=== PATIENT | female | born 1965 | race Caucasian/White ===

== ENCOUNTER 2020-09-02 07:18 | Outpatient (REF) | payer OTHER, SELFPAY ==
[2020-09-02 11:44] LABS: Glucose Urine UA NEG (NEG); Leukocyte Esterase Urine TRACE (NEG); Nitrite Urine NEG (NEG); PH 6.5 (5.0-8.0); Urine Blood 1+ (NEG); Urine Ketones NEG (NEG); Urine Protein NEG (NEG-TRACE)
[2020-09-02 11:45] LABS: Hemoglobin 11.9 g/dl (12.0-16.0); Mean Corpuscular HGB Conc 31.3 g/dl (31.0-35.0); Mean Corpuscular Volume 83.2 fL (80-98); Mean Platelet Volume 11.4 fL (9.4-12.3); Platelet Count 230 X10*3/uL (160-400); Red Blood Count 4.57 X10*6/uL (4.20-5.50); Red Cell Distribution Width 15.3 % (11.0-16.0); White Blood Count 7.5 X10*3/uL (4.8-10.8)
[2020-09-02 11:50] LABS: Appearance Urine HAZY; Color Urine YELLOW
[2020-09-02 12:10] LABS: Alanine Aminotransferase 15 U/L (0-31); Albumin Level 4.2 g/dL (3.5-5.0); Alkaline Phosphatase 107 U/L (39-117); Anion Gap 12 (12-20); Aspartate Amino Transferase 19 U/L (5-31); Bilirubin Total 0.5 mg/dL (0.0-1.0); Blood Urea Nitrogen 13 mg/dL (9-16); Carbon Dioxide 26 mmol/L (22-29); Chloride 105 mmol/L (96-108); Cholesterol 185 mg/dL; Estimated Glomerular Filt Rate > 60; Glucose Fasting 86 mg/dL (60-99); HDL Cholesterol 62 mg/dL; LDL Cholesterol Calculated 113 mg/dl; Potassium 4.1 mmol/l (3.3-5.1); Sodium 139 mmol/L (135-145); Total Protein 7.1 g/dL (6.5-8.0); Triglycerides 51 mg/dL
[2020-09-02 12:11] LABS: Bacteria Urine TRACE /LPF; Mucus Urine 1+ /LPF; Squamous Epithelial Cell Urine 2+ /LPF
[2020-09-02 12:14] LABS: Thyroid Stimulating Hormone 0.02 uIU/mL (0.32-4.0); Vitamin D 25-OH Total 47.4 ng/mL (>30)
== END 2020-09-02 07:19 | disposition home or self-care (01) ==
LOC: HO.HMGCLDS 07:18
PROVIDERS: PCP Internal Medicine; Visit Provider Internal Medicine
DX: E03.9 Hypothyroidism, unspecified (principal); E55.9 Vitamin D deficiency, unspecified; Z00.00 Encounter for general adult medical examination without abnormal findings; E78.2 Mixed hyperlipidemia
CPT/HCPCS: 36415; 80053; 80061; 81001; 82306; 84443; 85027

== ENCOUNTER 2021-03-29 08:33 | Outpatient (REF) | payer OTHER, SELFPAY ==
[2021-03-29 11:37] LABS: Glucose Urine UA NEG (NEG); Leukocyte Esterase Urine NEG (NEG); Nitrite Urine NEG (NEG); Specific Gravity - Urine 1.015 (1.005-1.025); Urine Blood 1+ (NEG); Urine Ketones NEG (NEG); Urine Protein NEG (NEG-TRACE)
[2021-03-29 11:44] LABS: Appearance Urine CLEAR; Color Urine YELLOW
[2021-03-29 12:08] LABS: TSH reflex Free T4 0.04 uIU/mL (0.32-4.0)
[2021-03-29 12:25] LABS: Bacteria Urine TRACE /LPF; RBC Urine 0-2 /HPF (0); Squamous Epithelial Cell Urine 1+ /LPF; WBC Urine 0-2 /HPF (0-4)
[2021-03-29 12:50] LABS: Free T4 (Free Thyroxine) 1.38 ng/dL (0.71-1.85)
== END 2021-03-29 08:34 | disposition home or self-care (01) ==
LOC: HO.HMGCLDS 08:33
PROVIDERS: PCP Internal Medicine; Visit Provider Internal Medicine
DX: E03.9 Hypothyroidism, unspecified (principal)
CPT/HCPCS: 36415; 81001; 84439; 84443

== ENCOUNTER 2021-06-14 07:22 | Outpatient (REF) | payer OTHER, SELFPAY ==
--- NOTE | ~2021-06-14 | XR_ITS ---
EXAMINATION: XR KNEE, LEFT CLINICAL INFORMATION: Pain left knee COMPARISON: None TECHNIQUE: Four views of the left knee. FINDINGS: There is no fracture, dislocation, destructive process, or suprapatellar effusion. There is no joint narrowing or erosive change or visible chondrocalcinosis. Hoffa's fat pad is unremarkable. XR/XR knee LT 4V IMPRESSION: Normal left knee.
[2021-06-14 11:21] LABS: Appearance Urine HAZY; Color Urine YELLOW; Glucose Urine UA NEG (NEG); Leukocyte Esterase Urine 1+ (NEG); Nitrite Urine NEG (NEG); Specific Gravity - Urine 1.025 (1.005-1.025); UACC Culture Trigger YES; Urine Blood 2+ (NEG); Urine Ketones NEG (NEG); Urine Protein NEG (NEG-TRACE)
[2021-06-14 11:25] LABS: MANUAL DIFF FLAG NO
[2021-06-14 11:33] LABS: Basophils Percent Auto 0.6 % (0-2); Eosinophils Absolute Auto 0.3 X10*3/uL (0.0-0.4); Eosinophils Percent Auto 4.6 % (0-4); Hematocrit 37.9 % (37-47); Imm Gran Abs Auto 0.02 X10*3/uL (0.00-0.03); Imm Gran Pct Auto 0.3 % (0.0-0.4); Lymphocytes Absolute Auto 2.3 X10*3/uL (1.2-4.9); Lymphocytes Percent Auto 33.6 % (20-40); Mean Corpuscular HGB Conc 31.7 g/dl (31.0-35.0); Mean Corpuscular Hemoglobin 26.8 pg (27.0-33.0); Mean Corpuscular Volume 84.6 fL (80-98); Mean Platelet Volume 11.5 fL (9.4-12.3); Monocytes Absolute Auto 0.7 X10*3/uL (0.1-1.2); Monocytes Percent Auto 10.3 % (2-11); Neutrophils Absolute Auto 3.4 X10*3/uL (2.0-8.3); Neutrophils Percent Auto 50.6 % (45-73); Platelet Count 219 X10*3/uL (160-400); Red Blood Count 4.48 X10*6/uL (4.20-5.50); Red Cell Distribution Width 14.9 % (11.0-16.0); White Blood Count 6.7 X10*3/uL (4.8-10.8)
[2021-06-14 11:45] LABS: Bacteria Urine 1+ /LPF; Squamous Epithelial Cell Urine 4+ /LPF
[2021-06-14 11:46] LABS: Alanine Aminotransferase 15 U/L (0-31); Albumin Level 4.1 g/dL (3.5-5.0); Alkaline Phosphatase 117 U/L (39-117); Anion Gap 13 (12-20); Aspartate Amino Transferase 19 U/L (5-31); Blood Urea Nitrogen 18 mg/dL (9-16); Calcium 9.4 mg/dL (8.4-10.2); Carbon Dioxide 21 mmol/L (22-29); Chloride 110 mmol/L (96-108); Cholesterol 206 mg/dL; Estimated Glomerular Filt Rate > 60; Glucose Fasting 111 mg/dL (60-99); HDL Cholesterol 65 mg/dL; LDL Cholesterol Calculated 127 mg/dl; Potassium 3.9 mmol/L (3.3-5.1); Sodium 140 mmol/L (135-145); Triglycerides 71 mg/dL
[2021-06-14 12:12] LABS: Bilirubin Total 0.2 mg/dL (0.0-1.0)
[2021-06-14 12:14] LABS: TSH reflex Free T4 0.01 uIU/mL (0.32-4.0)
[2021-06-14 12:57] LABS: Free T4 (Free Thyroxine) 1.39 ng/dL (0.71-1.85)
== END 2021-06-14 07:23 | disposition home or self-care (01) ==
LOC: HO.HMGCX 07:22
PROVIDERS: PCP Internal Medicine; Visit Provider Internal Medicine
DX: Z00.00 Encounter for general adult medical examination without abnormal findings (principal); M25.562 Pain in left knee; E03.9 Hypothyroidism, unspecified
CPT/HCPCS: 36415; 73564; 80053; 80061; 81001; 84439; 84443; 85025; 87086

== ENCOUNTER 2021-07-07 16:34 | Outpatient (RCR) | payer OTHER, SELFPAY ==
[2021-07-07 16:50] VITALS: BP 118/73; PULSE 73; O2SAT 97
--- NOTE | 2021-07-07 17:42 | MHC.PT.EP ---
[facility] [place] Office [place] Office [place] Office [address] Lew Quiñones [address] [phone] F: [phone] F: [phone] F: [phone] F: [phone] Physical Therapy Plan of Care Date of Evaluation: Date of Surgery: Diagnosis: This is a 56 yo female presenting to skilled PT with a script for dizziness and giddiness Assessment: This is a 56 yo female presenting to skilled PT with a script for dizziness and giddiness. Patient comes to PT with improvements in symptoms. Symptoms were last present 3 weeks ago. The patient does report a history of vertigo and has had symptoms that lasted about 10 days once a year for the past 3 years. When symptoms were present she reported that the room was spinning, she was unsteady and had LOB, vomited and was nauseous. Symptoms were increased with getting out of bed, rolling in bed. Examination shows normal oculomotor tests, (-) VBI, WFL cervical AROM. She was (-) for BPPV with kateryna-hallpike and roll test assessments. She had normal scores and no symptoms with DGI or ezio SOPT. She understands the anatomy, symptoms and symptom management at this time. Patient would benefit from 2x/wk for 4wks to address impairments, implement HEP and optimize functional mobility if symptoms return. Will keep chart open for 30 days. Frequency and Duration: The patient will be seen 2x/wk for 5wks Short Term Goals: Reassess if needed Paintings Restorer Goals: I in HEP Demo normal scores on balance tests without LOB noted or reported in community Demo no nystagmus or symptoms in testing positions Treatment Plan: Modalities to reduce pain, spasms and effusion. Manual therapy to restore motion and function. Therapeutic exercise to improve strength and flexibility. Neuromuscular re-education for posture and balance. Therapeutic activities to return to functional activities of daily living. Electronically signed by: Shanta Fields PT Please sign and return to therapist. Thank you for your referral.
--- NOTE | 2021-08-04 13:58 | MHC.PT.DC ---
[facility] [place] Office [place] Office [place] Office [address] Lew Quiñones [address] [phone] F: [phone] F: [phone] F: [phone] F: [phone] Physical Therapy Discharge Report Diagnosis: This is a 56 yo female presenting to skilled PT with a script for dizziness and giddiness Date of Surgery: Date of Evaluation: 07/07/21 Date of Discharge: 08/04/21 Treatments to Date: 1 Cancellations to Date: 0 No Shows to Date: 0 Discharge Status: Achieved Goals Improved Function Independent with HEP Discharge Summary: This is a 56 yo female presenting to skilled PT with a script for dizziness and giddiness. Patient comes to PT with improvements in symptoms. Symptoms were last present 3 weeks ago. The patient does report a history of vertigo and has had symptoms that lasted about 10 days once a year for the past 3 years. When symptoms were present she reported that the room was spinning, she was unsteady and had LOB, vomited and was nauseous. Symptoms were increased with getting out of bed, rolling in bed. Examination shows normal oculomotor tests, (-) VBI, WFL cervical AROM. She was (-) for BPPV with kateryna-hallpike and roll test assessments. She had normal scores and no symptoms with DGI or ezio SOPT. She understands the anatomy, symptoms and symptom management at this time. Patient would benefit from 2x/wk for 4wks to address impairments, implement HEP and optimize functional mobility if symptoms return. Kept chart open for 30 days prior to DC. DC at this time Electronically signed by: Shanta Fields, PT Please sign and return to therapist. Thank you for your referral.
== END 2021-08-04 13:58 | disposition home or self-care (01) ==
LOC: HO.PTCHIC 16:34
PROVIDERS: PCP Internal Medicine; Visit Provider Internal Medicine
DX: R42 Dizziness and giddiness (principal)
CPT/HCPCS: 97110; 97161

== ENCOUNTER 2021-07-14 08:29 | Outpatient (REF) | payer OTHER, SELFPAY ==
[2021-07-14 11:34] LABS: Appearance Urine CLEAR; Color Urine YELLOW; Glucose Urine UA NEG (NEG); Leukocyte Esterase Urine 1+ (NEG); Nitrite Urine NEG (NEG); UACC Culture Trigger YES; Urine Blood 1+ (NEG); Urine Ketones NEG (NEG); Urine Protein NEG (NEG-TRACE)
[2021-07-14 12:18] LABS: Squamous Epithelial Cell Urine 1+ /LPF
[2021-07-14 12:19] LABS: Renal Epithelial Cells Urine TRACE /LPF
== END 2021-07-14 08:30 | disposition home or self-care (01) ==
LOC: HO.HMGCLDS 08:29
PROVIDERS: PCP Internal Medicine; Visit Provider Internal Medicine
DX: Z00.00 Encounter for general adult medical examination without abnormal findings (principal); R30.0 Dysuria
CPT/HCPCS: 81001; 87086

== ENCOUNTER 2021-09-03 09:58 | Outpatient (REF) | payer OTHER, SELFPAY ==
[2021-09-04 11:19] LABS: BV Int Neg Control Negative (Negative); BV Int Pos Control Positive (Positive)
[2021-09-04 14:52] LABS: CT PCR NOT DETECTED (Not Detect.); NG PCR NOT DETECTED (Not Detect.)
[2021-09-08 13:47] LABS: HPV mRNA E6/E7 rflx Not Detected (Not Detected)
== END 2021-09-03 09:59 | disposition home or self-care (01) ==
LOC: HO.LAB 09:58
PROVIDERS: PCP Internal Medicine; Visit Provider Advanced Practice Midwife
DX: Z01.419 Encounter for gynecological examination (general) (routine) without abnormal findings (principal); N95.0 Postmenopausal bleeding; Z11.3 Encounter for screening for infections with a predominantly sexual mode of transmission
CPT/HCPCS: 87480; 87491; 87510; 87591; 87624; 87660; 88142

== ENCOUNTER 2021-09-22 10:27 | Outpatient (REF) | payer OTHER, SELFPAY ==
--- NOTE | ~2021-09-22 | US_ITS ---
EXAMINATION: US PELVIS CLINICAL INFORMATION: Postmenopausal bleeding COMPARISON: None TECHNIQUE: Ultrasound of the pelvis is performed using both transabdominal and transvaginal transducers along with Doppler. Transvaginal imaging is performed due to inadequate visualization transabdominally. FINDINGS: The uterus is anteverted and measures 7.2 x 3.5 x 4.5 cm in dimension. No focal uterine lesion is seen. Endometrial thickness is normal measuring 0.3 cm. The cervix is normal appearing. The ovaries are seen transabdominally only and are normal-appearing. The right ovary measures 1.8 x 0.8 x 1.7 cm and the left ovary measures 1.5 x 0.8 x 1.6 cm. There is no fluid in the pelvis. US/US pelvic and transvaginal IMPRESSION: Normal pelvic ultrasound.
== END 2021-09-22 10:28 | disposition home or self-care (01) ==
LOC: HO.HMGCX 10:27
PROVIDERS: PCP Internal Medicine; Visit Provider Advanced Practice Midwife
DX: N95.0 Postmenopausal bleeding (principal); K76.89 Other specified diseases of liver
CPT/HCPCS: 76830; 76856

== ENCOUNTER 2021-10-04 08:25 | Outpatient (REF) | payer OTHER, SELFPAY ==
--- NOTE | ~2021-10-04 | US_ITS ---
EXAMINATION: US ABDOMEN COMPLETE CLINICAL INFORMATION: Other specified diseases of liver. COMPARISON: Ultrasound abdomen complete 12/31/2019. TECHNIQUE: Real-time imaging of the abdominal viscera. FINDINGS: PANCREAS: Normal. ABDOMINAL AORTA: The proximal, mid, and distal segments are normal in caliber. INFERIOR VENA CAVA: Visualized portions are normal. LIVER: The liver is normal in size. The liver contour is normal. There is anechoic cyst left lobe measuring 1.9 x 1.0 x 1.8 cm and anechoic cyst in right lobe measuring 1.5 x 1.2 x 1.5 cm. There is no intrahepatic biliary duct dilatation seen. GALLBLADDER: Gallbladder wall thickness is 0.25 cm. The gallbladder is physiologically distended without evidence of stones, sludge, polyps, wall thickening or pericholecystic fluid. COMMON BILE DUCT: Normal in caliber measuring 0.35 cm in diameter. RIGHT KIDNEY: The right kidney appears horseshoe-shaped. No hydronephrosis. No renal calculi or focal parenchymal lesions. The kidney measures 10.0 cm in maximum dimension. LEFT KIDNEY: The left kidney appears horseshoe shaped and likely fused to the right side No hydronephrosis. No renal calculi or focal parenchymal lesions. The kidney measures 10.9 cm in maximum dimension. SPLEEN: Normal. The spleen measures 9.6 cm in maximum dimension. FREE FLUID: None. US/US abdomen complete IMPRESSION: Hepatic small cyst. No solid mass or intrahepatic duct dilatation. 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 This was not visualized on the previous ultrasound 12/31/2019. The rest of the abdominal ultrasound is unremarkable.
== END 2021-10-04 08:26 | disposition home or self-care (01) ==
LOC: HO.HMGCX 08:25
PROVIDERS: PCP Internal Medicine; Visit Provider Internal Medicine
DX: K76.89 Other specified diseases of liver (principal)
CPT/HCPCS: 76700

== ENCOUNTER → 2021-10-08 13:58 | Outpatient (BNVA) | payer OTHER, SELFPAY | PROVIDERS: PCP Internal Medicine; Visit Provider Advanced Practice Midwife | DX: N95.0 Postmenopausal bleeding (principal); Z71.2 Person consulting for explanation of examination or test findings | CPT/HCPCS: 99212 ==

== ENCOUNTER 2021-11-13 09:32 | Outpatient (REF) | payer OTHER, SELFPAY ==
[2021-11-13 11:37] LABS: Estimated Average Glucose 108 mg/dL; Hemoglobin A1C 118.8808 umol/L; Hemoglobin A1c % 5.4 %
[2021-11-13 11:48] LABS: TSH reflex Free T4 0.05 uIU/mL (0.32-4.0)
[2021-11-13 11:51] LABS: Alanine Aminotransferase 13 U/L (0-31); Albumin Level 4.2 g/dL (3.5-5.0); Alkaline Phosphatase 106 U/L (39-117); Anion Gap 9 (12-20); Aspartate Amino Transferase 20 U/L (5-31); Bilirubin Total 0.5 mg/dL (0.0-1.0); Blood Urea Nitrogen 14 mg/dL (9-16); Calcium 9.6 mg/dL (8.4-10.2); Carbon Dioxide 28 mmol/L (22-29); Chloride 105 mmol/L (96-108); Estimated Glomerular Filt Rate > 60; Glucose Fasting 105 mg/dL (60-99); Sodium 138 mmol/L (135-145); Total Protein 7.4 g/dL (6.5-8.0)
[2021-11-13 12:27] LABS: Free T4 (Free Thyroxine) 1.18 ng/dL (0.71-1.85)
== END 2021-11-13 09:33 | disposition home or self-care (01) ==
LOC: HO.HMGCLDS 09:32
PROVIDERS: Visit Provider Internal Medicine
DX: Z00.00 Encounter for general adult medical examination without abnormal findings (principal); E03.9 Hypothyroidism, unspecified; N95.0 Postmenopausal bleeding
CPT/HCPCS: 36415; 80053; 83036; 84439; 84443

== ENCOUNTER 2022-02-23 08:00 | Outpatient (RCR) | payer OTHER, SELFPAY ==
[2022-02-18 09:56] VITALS: BP 108/70; PULSE 71; O2SAT 96
--- NOTE | 2022-02-18 11:01 | MHC.PT.EP ---
[facility] [place] Office [place] Office [place] Office [address] Lew Quiñones [address] [phone] F: [phone] F: [phone] F: [phone] F: [phone] Physical Therapy Plan of Care Date of Evaluation: Date of Surgery: Diagnosis: dizziness and giddiness Assessment: 57 y/o F referred to PT with dizziness and giddiness. She has a hx of BPPV and most recent recurrence began yesterday after rolling in bed. She became nauseous and vomiting. Room-spinning dizziness last < 5 minutes. Sx are worsened with rolling in bed and moving too quickly. Examination shows normal saccades/ smooth pursuit, (-) B VBI, normal static balance, and (+) for R and L posterior canal BPPV. She had sx and nystamgus in B Dix_Hallpike positions, however she had a few horizontal bears in R Hallpike position but Roll Test was (-). Upon re-testing, she was negative after treatment with Lyndsay. Recommend PT 2x/week for 4 weeks to address impairments and optimize functional mobility. Frequency and Duration: The patient will be seen 2x/week for 4 weeks Short Term Goals: Equipment Coordinator Goals: 1. Pt will be (-) for nystagmus and reports of vertigo in all diagnostic directions with resolution of BPPV in 4 weeks 2. Pt to be able to functionally move in all planes without provocation of dizziness and return to PLOF in 4 weeks 3. Pt to be educated on sx and indications to return to therapy when needed in 4. Eliminate BPPV in order to reduce risk of falls Treatment Plan: Modalities to reduce pain, spasms and effusion. Manual therapy to restore motion and function. Therapeutic exercise to improve strength and flexibility. Neuromuscular re-education for posture and balance. Therapeutic activities to return to functional activities of daily living. Electronically signed by: Zara Castro PT Please sign and return to therapist. Thank you for your referral.
--- NOTE | 2022-04-08 07:55 | MHC.PT.DC ---
[facility] [place] Office [place] Office [place] Office [address] Lew Quiñones [address] [phone] F: [phone] F: [phone] F: [phone] F: [phone] Physical Therapy Discharge Report Diagnosis: dizziness and giddiness Date of Surgery: Date of Evaluation: 02/18/22 Date of Discharge: 04/08/22 Treatments to Date: 2 Cancellations to Date: 0 No Shows to Date: 0 Discharge Status: Achieved Goals Improved Function Discharge Summary: Lillie comes in feeling better. She was reassessed for all canals in which she was negative for nystagmus and symptoms. She was educated on causes of vertigo, symptoms and calling office if symptoms return. D/c at this time. Electronically signed by: Zara Castro PT Please sign and return to therapist. Thank you for your referral.
== END 2022-04-08 07:56 | disposition home or self-care (01) ==
LOC: HO.PTCHIC 08:00
PROVIDERS: PCP Internal Medicine; Visit Provider Internal Medicine
DX: R42 Dizziness and giddiness (principal)
CPT/HCPCS: 95992; 97161

== ENCOUNTER 2022-08-01 13:29 | Outpatient (REF) | payer OTHER, SELFPAY ==
[2022-08-01 16:27] LABS: MANUAL DIFF FLAG NO
[2022-08-01 16:34] LABS: Basophils Percent Auto 0.4 % (0-2); Eosinophils Absolute Auto 0.2 X10*3/uL (0.0-0.4); Eosinophils Percent Auto 2.3 % (0-4); Hematocrit 37.1 % (37.0-47.0); Hemoglobin 12.1 g/dl (12.0-16.0); Imm Gran Abs Auto 0.01 X10*3/uL (0.00-0.03); Imm Gran Pct Auto 0.1 % (0.0-0.4); Lymphocytes Absolute Auto 2.2 X10*3/uL (1.2-4.9); Mean Corpuscular HGB Conc 32.6 g/dl (31.0-35.0); Mean Corpuscular Hemoglobin 28.4 pg (27.0-33.0); Mean Corpuscular Volume 87.1 fL (80.0-98.0); Mean Platelet Volume 11.6 fL (9.4-12.3); Monocytes Absolute Auto 0.5 X10*3/uL (0.1-1.2); Monocytes Percent Auto 6.9 % (2-11); Neutrophils Absolute Auto 4.1 x10*3/uL (2.0-8.3); Neutrophils Percent Auto 58.3 % (45-73); Platelet Count 198 X10*3/uL (160-400); Red Blood Count 4.26 X10*6/uL (4.20-5.50); Red Cell Distribution Width 13.8 % (11.0-16.0)
[2022-08-01 16:40] LABS: Alanine Aminotransferase 17 U/L (0-31); Albumin Level 4.2 g/dL (3.5-5.0); Alkaline Phosphatase 106 U/L (39-117); Anion Gap 12 (12-20); Aspartate Amino Transferase 20 U/L (5-31); Bilirubin Total 0.3 mg/dL (0.0-1.0); Blood Urea Nitrogen 14 mg/dL (9-16); Calcium 9.5 mg/dL (8.4-10.2); Carbon Dioxide 26 mmol/L (22-29); Chloride 107 mmol/L (96-108); Estimated Glomerular Filt Rate > 60; Glucose Random 92 mg/dL (60-115); Potassium 4.2 mmol/L (3.3-5.1); Sodium 141 mmol/L (135-145); Total Protein 7.5 g/dL (6.5-8.0)
[2022-08-01 16:44] LABS: Appearance Urine Cloudy; Color Urine Yellow; Glucose Urine UA Negative (Negative); Leukocyte Esterase Urine Small (1+) (Negative); Nitrite Urine Negative (Negative); Specific Gravity - Urine <= 1.005 (1.005-1.025); UMIC TRIGGER UACC YES; Urine Blood Negative (Negative); Urine Ketones Negative (Negative); Urine Protein Negative (Neg-Trace)
[2022-08-01 17:03] LABS: TSH reflex Free T4 0.01 uIU/mL (0.32-4.0)
[2022-08-01 17:10] LABS: Bacteria Urine None Seen (None Seen); Hyaline Casts Urine 0-2 /LPF (0-2); RBC Urine 0-2 /HPF (0-2); Squamous Epithelial Cell Urine 0-2 /HPF (0-2); UACC Culture Trigger YES; WBC Urine 0-5 /HPF (0-5)
[2022-08-01 17:57] LABS: Free T4 (Free Thyroxine) 1.33 ng/dL (0.71-1.85)
== END 2022-08-01 13:30 | disposition home or self-care (01) ==
LOC: HO.HMGCLDS 13:29
PROVIDERS: PCP Internal Medicine; Visit Provider Internal Medicine
DX: R10.9 Unspecified abdominal pain (principal); E03.9 Hypothyroidism, unspecified
CPT/HCPCS: 36415; 76700; 80053; 81001; 84439; 84443; 85025; 87086

== ENCOUNTER 2022-08-01 13:52 | Outpatient (REF) | payer OTHER, SELFPAY ==
--- NOTE | ~2022-08-01 | US_ITS ---
EXAMINATION: US ABDOMEN COMPLETE CLINICAL INFORMATION: Abdominal pain. COMPARISON: 10/04/2021 TECHNIQUE: Real-time imaging of the abdominal viscera. FINDINGS: PANCREAS: Normal. ABDOMINAL AORTA: The proximal, mid, and distal segments are normal in caliber. INFERIOR VENA CAVA: Visualized portions are normal. LIVER: Liver has normal contour and parenchymal echotexture. No evidence of steatosis or cirrhotic morphology. 1.2 cm liver cyst is detected. Also, there is a 2.1 cm cyst that has a thin septation. No liver imaging follow-up is recommended for these cysts. No intrahepatic bile duct dilatation. GALLBLADDER: Normal. The gallbladder is physiologically distended without evidence of stones, sludge, polyps, wall thickening or pericholecystic fluid. COMMON BILE DUCT: Normal in caliber measuring 0.4 cm in diameter. KIDNEYS: There appears to be horseshoe configuration of the kidneys. The kidneys have normal echotexture. No focal parenchymal lesion, nephrolithiasis or hydronephrosis. The right kidney measures approximately 11.7 cm and left kidney 10.5 cm in length. SPLEEN: Normal. The spleen measures 8.6 cm in maximum dimension. FREE FLUID: None. US/US abdomen complete IMPRESSION: * No acute sonographic abnormalities compared to prior ultrasound from 10/04/2021. * No evidence of cholelithiasis, cholecystitis or biliary tract obstruction. 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 No nephrolithiasis or hydronephrosis.
== END 2022-08-01 13:53 | disposition home or self-care (01) ==
LOC: HO.HMGCX 13:52
PROVIDERS: Visit Provider Internal Medicine
DX: Z13.89 Encounter for screening for other disorder (principal)
CPT/HCPCS: 76700

== ENCOUNTER 2022-08-13 13:20 | Outpatient (REF) | payer OTHER, SELFPAY ==
--- NOTE | ~2022-08-13 | XR_ITS ---
EXAMINATION: XR LUMBOSACRAL SPINE CLINICAL INFORMATION: Low back pain. COMPARISON: None TECHNIQUE: Three views of the lumbosacral spine. FINDINGS: Mild degenerative changes are seen most marked at L2-L3 where there is disc space narrowing, endplate sclerosis and some osteophytes. Vertebral body heights are well maintained. The remainder of the disc spaces are well maintained. SI joints appear unremarkable. No fractures, subluxations or bony destructive lesions seen. XR/XR lumbar spine 2-3V IMPRESSION: Mild degenerative changes most marked at L2-L3.
== END 2022-08-13 13:21 | disposition home or self-care (01) ==
LOC: HO.HMGCX 13:20
PROVIDERS: PCP Internal Medicine; Visit Provider Internal Medicine
DX: M54.50 Low back pain, unspecified (principal)
CPT/HCPCS: 72100

== ENCOUNTER 2022-09-03 09:46 | Outpatient (REF) | payer OTHER, SELFPAY ==
[2022-09-03 11:01] LABS: MANUAL DIFF FLAG NO
[2022-09-03 11:04] LABS: Basophils Percent Auto 0.6 % (0-2); Eosinophils Absolute Auto 0.3 X10*3/uL (0.0-0.4); Eosinophils Percent Auto 4.3 % (0-4); Hematocrit 40.5 % (37.0-47.0); Hemoglobin 13.1 g/dl (12.0-16.0); Imm Gran Abs Auto 0.01 X10*3/uL (0.00-0.03); Imm Gran Pct Auto 0.1 % (0.0-0.4); Lymphocytes Absolute Auto 2.7 X10*3/uL (1.2-4.9); Lymphocytes Percent Auto 39.5 % (20-40); Mean Corpuscular HGB Conc 32.3 g/dl (31.0-35.0); Mean Corpuscular Hemoglobin 28.1 pg (27.0-33.0); Mean Corpuscular Volume 86.7 fL (80.0-98.0); Monocytes Absolute Auto 0.4 X10*3/uL (0.1-1.2); Monocytes Percent Auto 5.8 % (2-11); Neutrophils Absolute Auto 3.4 x10*3/uL (2.0-8.3); Neutrophils Percent Auto 49.7 % (45-73); Platelet Count 229 X10*3/uL (160-400); Red Blood Count 4.67 X10*6/uL (4.20-5.50); Red Cell Distribution Width 14.3 % (11.0-16.0); White Blood Count 6.9 X10*3/uL (4.8-10.8)
[2022-09-03 12:18] LABS: Alanine Aminotransferase 29 U/L (0-31); Albumin Level 4.2 g/dL (3.5-5.0); Alkaline Phosphatase 110 U/L (39-117); Anion Gap 11 (12-20); Aspartate Amino Transferase 33 U/L (5-31); Bilirubin Total 0.5 mg/dL (0.0-1.0); Blood Urea Nitrogen 14 mg/dL (9-16); Calcium 9.5 mg/dL (8.4-10.2); Carbon Dioxide 27 mmol/L (22-29); Chloride 101 mmol/L (96-108); Cholesterol 277 mg/dL; Estimated Glomerular Filt Rate > 60; Glucose Fasting 88 mg/dL (60-99); HDL Cholesterol 83 mg/dL; LDL Cholesterol Calculated 181 mg/dl; Potassium 4.1 mmol/L (3.3-5.1); Sodium 135 mmol/L (135-145); TSH reflex Free T4 33.22 uIU/mL (0.32-4.0); Total Protein 7.5 g/dL (6.5-8.0); Triglycerides 68 mg/dL
[2022-09-03 12:55] LABS: Free T4 (Free Thyroxine) 0.52 ng/dL (0.71-1.85)
== END 2022-09-03 09:47 | disposition home or self-care (01) ==
LOC: HO.HMGCLDS 09:46
PROVIDERS: PCP Internal Medicine; Visit Provider Internal Medicine
DX: Z00.00 Encounter for general adult medical examination without abnormal findings (principal); E03.9 Hypothyroidism, unspecified
CPT/HCPCS: 36415; 80053; 80061; 84439; 84443; 85025

== ENCOUNTER 2022-09-08 08:30 | Outpatient (REF) | payer OTHER, SELFPAY ==
--- NOTE | ~2022-09-08 | XR_ITS ---
EXAMINATION: XR RIBS, RIGHT, PA CHEST CLINICAL INFORMATION: Pleurodynia. COMPARISON: None TECHNIQUE: 3 views of the right ribs were obtained along with a PA view of the chest. A skin marker was placed overlying the inferolateral right ribs. FINDINGS: Lungs are clear. No consolidation, pneumothorax, or pleural effusion. The cardiomediastinal silhouette and pulmonary vasculature are normal. Deformity is seen in the posterolateral right 10th rib. The remainder the ribs are intact. The soft tissues are unremarkable. XR/XR ribs RT min 3V w CXR1V IMPRESSION: 1. No acute cardiopulmonary process. 2. Deformity in the posterolateral right 10th rib correlates with the region of pain and is most consistent with an acute nondisplaced fracture.
== END 2022-09-08 08:31 | disposition home or self-care (01) ==
LOC: HO.HMGCX 08:30
PROVIDERS: PCP Internal Medicine; Visit Provider Internal Medicine
DX: R07.81 Pleurodynia (principal)
CPT/HCPCS: 71101

== ENCOUNTER 2022-11-04 14:20 | Outpatient (REF) | payer OTHER, SELFPAY ==
--- NOTE | ~2022-11-04 | MM_ITS ---
EXAMINATION: BONE DENSITOMETRY CLINICAL INDICATION: Asymptomatic menopausal state. COMPARISON: This is the patient's baseline examination. TECHNIQUE: Using a [employer] DXA System (software version: 13.1) manufactured by [employer], dual-energy x-ray absorptiometry was performed of the lumbar spine and left hip. The images are of good technical quality. Summary results are attached. FINDINGS: AP SPINE L1-L4: BMD 1.013 g/cm2, Z-score -0.5, T-score -1.4, osteopenia. LEFT FEMUR, NECK: BMD 0.785 g/cm2, Z-score -0.7, T-score -1.8, osteopenia. LEFT FEMUR, TOTAL: BMD 0.895 g/cm2, Z-score -0.2, T-score -0.9, normal. IDENTIFIED RISK FACTORS: History of fracture (adult), menopause. HISTORY OF FRACTURE: Ribs. MEDICATIONS: Vitamin D. MM/XR DEXA axial skeleton IMPRESSION: 1. DIAGNOSIS: Osteopenia based on the lowest T-score value of -1.8 in the femoral neck applying World Health Organization criteria. 2. 10-YEAR FRACTURE RISK PREDICTION, FRAX: Major osteoporotic fracture (clinical spine, forearm, hip or shoulder) 14.0%. Hip fracture 1.6%. 3. Treatment Recommendations: NOF guidelines recommend consideration for treatment in postmenopausal women and men age 50 and older presenting with the following: -A hip or vertebral (clinical or morphometric) fracture. -T-score less than or equal to -2.5 at the femoral neck or spine after appropriate evaluation to exclude secondary causes. -Low bone mass at the hip or spine and a 10-year fracture probability by FRAX of greater than or equal to 3% for hip fracture or greater than or equal to 20% for major osteoporotic fracture based on the [place] adapted WHO algorithm. 4. Other Recommendations: All treatment decisions require clinical judgment and consideration of individual patient factors, including patient preferences, comorbidities, previous drug use, risk factors not captured in the FRAX model (e.g. frailty, falls, vitamin D deficiency, increased bone turnover, interval significant decline in bone density) and possible under or overestimation of fracture risk by FRAX. Additional medical evaluation for secondary cause of low bone mineral density may be appropriate. FUTURE SCAN RECOMMENDATION: People with diagnosed cases of osteoporosis or at high risk for fracture should have regular bone mineral density tests. For patients eligible for Medicare, routine testing is allowed once every 2 years. The testing frequency can be increased to one year for patients who have rapidly progressing disease, those who are receiving or discontinuing medical therapy to restore bone mass, or have additional risk factors.
== END 2022-11-04 14:21 | disposition home or self-care (01) ==
LOC: HO.MAMMO 14:20
PROVIDERS: PCP Internal Medicine; Visit Provider Internal Medicine
DX: Z13.820 Encounter for screening for osteoporosis (principal); Z78.0 Asymptomatic menopausal state
CPT/HCPCS: 77080

== ENCOUNTER → 2022-12-16 15:10 | Outpatient (BNVA) | payer OTHER, SELFPAY | PROVIDERS: PCP Internal Medicine; Visit Provider Advanced Practice Midwife ==

== ENCOUNTER 2022-12-17 08:29 | Outpatient (REF) | payer OTHER, SELFPAY ==
[2022-12-17 11:40] LABS: Cholesterol 183 mg/dL; HDL Cholesterol 66 mg/dL; LDL Cholesterol Calculated 109 mg/dl; Triglycerides 44 mg/dL
[2022-12-17 11:51] LABS: TSH reflex Free T4 1.56 uIU/mL (0.32-4.0)
== END 2022-12-17 08:30 | disposition home or self-care (01) ==
LOC: HO.HMGCLDS 08:29
PROVIDERS: PCP Internal Medicine; Visit Provider Internal Medicine
DX: E03.9 Hypothyroidism, unspecified (principal); E78.5 Hyperlipidemia, unspecified
CPT/HCPCS: 36415; 80061; 84443

== ENCOUNTER 2023-04-17 09:07 | Outpatient (AMB) | payer OTHER, SELFPAY ==
[2023-04-17 09:54] VITALS: BP 122/70; PULSE 72; TEMP 36.6; O2SAT 98
--- NOTE | 2023-04-17 09:54 | MHC.OFFWIV ---
Intake Vital Signs 04/17/23 09:54 Height 5 ft 4 in BP 122/70 Blood Pressure Location Rt brachial Position Sitting Pulse 72 Pulse Source Pulse Oximeter Temp 97.8 F Temp Source Temporal Artery Scan Pulse Oximetry (%) 98 Oxygen Delivery Method Room Air Intake Visit Reasons: EP Swelling in eye/stye (lobby) Intake Note: pt is here for c/o sty on eye lid, swollen and red Patient Tobacco Use Status: Never used Tobacco Allergies No Known Allergies Allergy (Verified 04/17/23 10:39) Medication List - Last Reconciled 04/17/23 by Rajendra Mirza MD levothyroxine 137 mcg PO DAILY meclizine 25 mg PO BID PRN 15 days Do you need a note to return to daycare/school/sports/work: Yes HPI EP Swelling in eye/stye (lobby) HPI Details 58-year-old female presents to the office for a sick visit. Patient has a stye infection in the right eye. Symptoms started 2 days ago. [facility] Medical History Annual physical exam Contact dermatitis Dysuria History of mammogram Hypothyroidism Knee pain, left Liver cyst Normal Pap smear Pelvic pain Postmenopausal bleeding Vertigo Surgical History H/O colonoscopy No pertinent past surgical history Family History Father Cancer Lung cancer Mother No problems noted. Paternal Grandmother Breast cancer Brother Kidney replaced by transplant Maternal Aunt Colon cancer Sister Breast cancer Social History Household Members Other:: works as MA at [employer] Housing: House Alcohol intake: current Alcohol intake frequency: a few times a month Patient Tobacco Use Status: Never used Tobacco e-Cigarette/Vaping Use: Never Used Second Hand Smoke Exposure: Yes service: No Current occupational status: employed Current occupational exposures/hazards: No Cognitive needs: No Hearing needs: No Vision needs: No Physical Exam Vital Signs: Last Vital Signs Temp 97.8 F 04/17/23 09:54 Pulse 72 04/17/23 09:54 BP 122/70 04/17/23 09:54 Pulse Ox 98 07/17/23 09:54 Oxygen Delivery Method Room Air 04/17/23 09:54 HEENT Other: Right eye: Lower lid: Erythematous area with swelling, corresponding tarsal conjunctiva is congested. Assessment & Plan Assessment & Plan (1) Hordeolum externum left lower eyelid: Code(s): H00.015 - Hordeolum externum left lower eyelid Plan: Erythromycin ophthalmic ointment used twice a day. If symptoms not better to follow-up here. Coding Level of Care Code Est Pt Level 3 (94574) Diagnoses Hordeolum externum left lower eyelid H00.015
== END 2023-04-17 10:56 | disposition home or self-care (01) ==
PROVIDERS: PCP Internal Medicine; Visit Provider Internal Medicine
DX: H00.015 Hordeolum externum left lower eyelid (principal)
CPT/HCPCS: 99213